=== PATIENT | female | born 2000 | race Caucasian/White ===

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

== ENCOUNTER 2018-01-03 01:34 | Day surgery (SDC) | payer OTHER | END 2018-01-03 22:42 | disposition home or self-care (01) | LOC: ATC 01:34 | DX: O21.9 Vomiting of pregnancy, unspecified (principal); Z79.899 Other long term (current) drug therapy; Z86.14 Personal history of Methicillin resistant Staphylococcus aureus infection; Z88.0 Allergy status to penicillin; Z88.2 Allergy status to sulfonamides; Z3A.11 11 weeks gestation of pregnancy; Z87.891 Personal history of nicotine dependence | CPT/HCPCS: J2405; J7120 ==

== ENCOUNTER 2018-01-04 00:05 | Day surgery (SDC) | payer OTHER | END 2018-01-04 09:16 | disposition home or self-care (01) | LOC: ATC 00:05 | DX: O21.9 Vomiting of pregnancy, unspecified (principal); Z88.2 Allergy status to sulfonamides; Z86.14 Personal history of Methicillin resistant Staphylococcus aureus infection; Z3A.11 11 weeks gestation of pregnancy; Z87.891 Personal history of nicotine dependence | CPT/HCPCS: 96361; 96374; J2405; J7120 ==

== ENCOUNTER 2018-01-06 00:02 | Day surgery (SDC) | payer OTHER | END 2018-01-06 10:04 | disposition home or self-care (01) | LOC: ATC 00:02 | DX: O21.9 Vomiting of pregnancy, unspecified (principal) | CPT/HCPCS: 96361; 96374; J2405; J7120 ==

== ENCOUNTER 2018-01-17 00:09 | Day surgery (SDC) | payer OTHER | END 2018-01-17 09:40 | disposition home or self-care (01) | LOC: ATC 00:09 | DX: O21.9 Vomiting of pregnancy, unspecified (principal) | CPT/HCPCS: 96361; 96374; J2405; J7120 ==

== ENCOUNTER 2018-01-18 00:02 | Day surgery (SDC) | payer OTHER | END 2018-01-18 10:30 | disposition home or self-care (01) | LOC: ATC 00:02 | DX: O21.9 Vomiting of pregnancy, unspecified (principal) | CPT/HCPCS: 99211; C1751 ==

== ENCOUNTER 2018-01-20 00:09 | Day surgery (SDC) | payer OTHER | END 2018-01-20 15:49 | disposition home or self-care (01) | LOC: ATC 00:09 | DX: O21.9 Vomiting of pregnancy, unspecified (principal) | CPT/HCPCS: 96361; 96374; J2405; J7120 ==

== ENCOUNTER 2018-01-24 00:10 | Day surgery (SDC) | payer OTHER | END 2018-01-24 09:33 | disposition home or self-care (01) | LOC: ATC 00:10 | DX: O21.9 Vomiting of pregnancy, unspecified (principal) | CPT/HCPCS: 96374; C1751; J2405; J7120 ==

== ENCOUNTER 2018-01-27 00:14 | Day surgery (SDC) | payer OTHER | END 2018-01-27 15:15 | disposition home or self-care (01) | LOC: ATC 00:14 | DX: O21.9 Vomiting of pregnancy, unspecified (principal) | CPT/HCPCS: 96361; 96374; J2405; J7120 ==

== ENCOUNTER 2018-01-31 00:42 | Day surgery (SDC) | payer OTHER | END 2018-01-31 09:31 | disposition home or self-care (01) | LOC: ATC 00:42 | DX: O21.9 Vomiting of pregnancy, unspecified (principal) | CPT/HCPCS: 96361; 96374; J2405; J7120 ==

== ENCOUNTER 2018-07-13 06:35 | Inpatient (IN) | payer OTHER ==
[~2018-07-13] VITALS: Ht 167.6 cm; Wt 68.0 kg
[~2018-07-13 06:35] MED LIST changes: +ACET500 PO; +Macrobid 100 M100 MG PO; -ONDA4ODT; +ONDA4ODT PO
--- NOTE | 2018-07-13 08:29 | NUR ---
UNABLE TO START IV WILL CALL
[2018-07-13 09:12] LABS: BASOPHILS ABSOLUTE AUTO 0.04 K/mm3 (0.00-0.23); BASOPHILS PERCENT AUTO 0 % (0-2); EOSINOPHILS ABSOLUTE AUTO 0.02 K/mm3 (0.00-0.68); EOSINOPHILS PERCENT AUTO 0 % (0-6); Hematocrit 37.1 % (33.0-51.0); Hemoglobin 12.2 g/dL (11.5-16.0); IMMATURE GRAN ABSOLUTE AUTO 0.05 K/mm3 (0.00-0.10); IMMATURE GRAN PERCENT AUTO 0 % (0-1); LYMPHOCYTES ABSOLUTE AUTO 1.64 K/mm3 (0.84-5.20); LYMPHOCYTES PERCENT AUTO 11 % (21-46); MONOCYTES ABSOLUTE AUTO 0.86 K/mm3 (0.16-1.47); MONOCYTES PERCENT AUTO 6 % (4-13); Mean Corpuscular HGB 28.3 pg (26.0-34.0); Mean Corpuscular HGB Conc 32.9 g/dL (31.5-36.5); Mean Corpuscular Volume 86 fL (80-100); Mean Platelet Volume 11.9 fL (9.1-12.4); NEUTROPHILS ABSOLUTE AUTO 11.73 K/mm3 (1.96-9.15); NEUTROPHILS PERCENT AUTO 82 % (41-73); Platelet Count 183 K/mm3 (150-400); RDW Coefficient Variation 12.4 % (11.7-14.2); RDW Standard Deviation 39.4 fL (35.1-46.3); Red Blood Cell Count 4.31 M/mm3 (3.80-5.20); White Blood Cell Count 14.34 K/mm3 (4.00-11.30)
--- NOTE | 2018-07-13 09:48 | NUR ---
PATIENT REFUSING IV AT THIS TIME, DR SCOTT UPDATED
[2018-07-14 06:30] LABS: Hematocrit 32.5 % (33.0-51.0); Hemoglobin 10.7 g/dL (11.5-16.0); Mean Corpuscular HGB 27.9 pg (26.0-34.0); Mean Corpuscular HGB Conc 32.9 g/dL (31.5-36.5); Mean Corpuscular Volume 85 fL (80-100); Mean Platelet Volume 12.2 fL (9.1-12.4); Platelet Count 169 K/mm3 (150-400); RDW Coefficient Variation 12.8 % (11.7-14.2); RDW Standard Deviation 38.5 fL (35.1-46.3); Red Blood Cell Count 3.83 M/mm3 (3.80-5.20); White Blood Cell Count 11.06 K/mm3 (4.00-11.30)
--- NOTE | 2018-07-14 16:32 | NUR ---
CONSULT. VERY SLEEPY CURRENTLY, FED ABOUT 90 MINUTES AGO. WAKENED BRIEFLY, ATTEMPTED TO COORDINATE SUCK, FREQUENT BITING, NO COORDINATION WITH INCREASED SUCTION THIS TRY. NO RESPONSE WHEN PUT TO BREAST. INSTRUCT/DEMO SELF EBM, POSITIONING TO OBTAIN A DEEPER ASYMETRIC LATCH AND FURTHER WIDENING, USE OF SHIELD, WIDENING LATCH ON SHIELD, AND WEANING FROM USE AFTER ENGORGEMENT EASES. INSTRUCT IN CHANGES TO EXPECT DURING THE FIRST WEEK WITH FEEDINGS AND WITH BABY AND REFERRED TO [facility]URE AND PAGE 18 OF [facility]. INSTRUCT IN PUMPING TO BRING MILK IN MORE FULLY AND TO USE FEEDING SYRINGE INTO SHIELD OR DIRECTLY INTO HIS MOUTH TO HELP STIMULATE DEEPER SUCKING. SLOW PUMPING TO 1-2X/DAY FOR 5-10 MINUTES WHEN MILK IS IN FULLY, AND STOP SUPPLEMENTS AT THAT TIME ALSO. MOM LOVING WITH HIM.
== END 2018-07-14 16:00 | disposition home or self-care (01) | DRG 807 ==
LOC: OBS 06:35 → BC 06:35 → OBS 06:51 → BC 06:52
PROVIDERS: ADMIT Obstetrics & Gynecology
PROC: 10E0XZZ Delivery of Products of Conception, External Approach (ICD-10-PCS; principal; 2018-07-13)
DX: O80 Encounter for full-term uncomplicated delivery (principal); Z37.0 Single live birth; Z3A.38 38 weeks gestation of pregnancy
CPT/HCPCS: 85025; 85027; J2210

== ENCOUNTER → 2018-08-30 | Outpatient (CLI) | payer OTHER ==
[2018-08-31 07:16] LABS: Candida species (DNA Probe) Negative (NEGATIVE); G. vaginalis (DNA Probe) Positive (NEGATIVE); T. vaginalis (DNA Probe) Negative (NEGATIVE)
== END | disposition home or self-care (01) ==
LOC: LAB SHORT 16:20 → LAB 16:20
PROVIDERS: Obstetrics & Gynecology
DX: N76.0 Acute vaginitis (principal)
CPT/HCPCS: 87480; 87510; 87660

== ENCOUNTER → 2019-10-17 | Outpatient (CLI) | payer OTHER ==
[2019-10-18 20:09] LABS: CHLAMYDIA TRACHOMATIS, NAA Negative (Negative); NEISSERIA GONORRHOEAE, NAA Negative (Negative)
== END | disposition home or self-care (01) ==
LOC: LAB 16:28 → LAB SHORT 16:28
PROVIDERS: Hospitalist
DX: Z11.3 Encounter for screening for infections with a predominantly sexual mode of transmission (principal)
CPT/HCPCS: 87491; 87591

== ENCOUNTER → 2020-11-29 | Outpatient (CLI) | payer OTHER | END | disposition home or self-care (01) | LOC: LAB 12:00 → LAB SHORT 12:00 | DX: R30.0 Dysuria (principal) | CPT/HCPCS: 87086 ==

== ENCOUNTER 2021-04-25 11:20 | Day surgery (SDC) | payer OTHER ==
[2021-04-25] MEDS ORDERED: Doxycycline Mo100 M1 PO (13:44)
[2021-04-25] MEDS ORDERED: DRIMINATE50 M1 PO (13:50)
[2021-04-25] MEDS ORDERED: PROM25 PO (13:53)
[2021-04-25] MEDS ORDERED: ONDA4 PO (13:53)
[2021-04-25] MEDS ORDERED: PRENATE CHEWABLE1 MG PO (13:54)
== END 2021-04-25 15:45 | disposition home or self-care (01) ==
LOC: ATC 11:20
DX: O21.1 Hyperemesis gravidarum with metabolic disturbance (principal); O21.9 Vomiting of pregnancy, unspecified; Z3A.15 15 weeks gestation of pregnancy
CPT/HCPCS: 96361; 96374; J2405; J7121

== ENCOUNTER 2021-04-28 14:52 | Day surgery (SDC) | payer OTHER ==
[~2021-04-28 14:52] MED LIST changes: +DRIMINATE50 M1 PO; +Doxycycline Mo100 M1 PO; +ONDA4 PO; +PRENATE CHEWABLE1 MG PO
== END 2021-04-28 15:50 | disposition home or self-care (01) ==
LOC: ATC 14:52
DX: O21.1 Hyperemesis gravidarum with metabolic disturbance (principal); R39.198 Other difficulties with micturition
CPT/HCPCS: 96361; 96374; J2405; J7121

== ENCOUNTER 2021-09-12 22:55 | Emergency (ER) | payer OTHER ==
[~2021-09-12] VITALS: Ht 172.7 cm; Wt 54.9 kg
[2021-09-12] MEDS ORDERED: Vibramycin100 MG PO (23:33)
== END 2021-09-12 23:40 | disposition home or self-care (01) ==
LOC: ER 22:55
DX: J02.9 Acute pharyngitis, unspecified (principal); Z87.891 Personal history of nicotine dependence; Z88.2 Allergy status to sulfonamides; Z88.1 Allergy status to other antibiotic agents
CPT/HCPCS: 87430; A9270

== ENCOUNTER → 2022-02-09 | Outpatient (CLI) | payer OTHER ==
[~2022-02-09] MED LIST changes: +Vibramycin100 MG PO
[2022-02-11 02:09] LABS: CHLAMYDIA TRACHOMATIS, NAA Negative (Negative)
== END | disposition home or self-care (01) ==
LOC: LAB SHORT 18:02 → LAB 18:02
PROVIDERS: Hospitalist
DX: Z11.3 Encounter for screening for infections with a predominantly sexual mode of transmission (principal)
CPT/HCPCS: 87491; 87591

== ENCOUNTER → 2022-04-06 | Outpatient (CLI) | payer OTHER ==
[2022-04-06 20:08] LABS: Influenza A, PCR POSITIVE (NEGATIVE); Influenza B, PCR NEGATIVE (NEGATIVE); Resp Syncytial Virus, PCR NEGATIVE (NEGATIVE); SARS-Cov-2 (COVID-19) PCR, MMC NEGATIVE (NEGATIVE)
== END | disposition home or self-care (01) ==
LOC: LAB SHORT 17:09
PROVIDERS: Hospitalist
DX: R50.9 Fever, unspecified (principal)
CPT/HCPCS: 0241U

== ENCOUNTER → 2022-05-21 | Outpatient (CLI) | payer OTHER | END | disposition home or self-care (01) | LOC: LAB SHORT 17:00 | DX: O20.0 Threatened abortion (principal) | CPT/HCPCS: 84702 ==

== ENCOUNTER 2023-02-19 23:41 | Observation (INO) | payer OTHER ==
[~2023-02-19] VITALS: Ht 172.7 cm; Wt 68.0 kg
[2023-02-19 23:47] VITALS: BP 125/76
[2023-02-20 09:00] VITALS: BP 116/58
[2023-02-20 13:13] VITALS: BP 116/70
[2023-02-20 15:41] VITALS: BP 123/75
--- NOTE | 2023-02-20 15:47 | NUR ---
TELEPHONE ORDER FROM Alexsandra KENT CNM FOR D/C HOME. PT IS DISCHARGED HOME, DRIVEN BY BOYFRIENChavo RUSSO.
== END 2023-02-20 15:55 | disposition home or self-care (01) ==
LOC: OBS 23:41 → BC 23:43 → OBS 02-20 02:44 → BC 02-20 02:45
PROVIDERS: ADMIT Advanced Practice Midwife
DX: O47.1 False labor at or after 37 completed weeks of gestation (principal); Z3A.37 37 weeks gestation of pregnancy; Z88.0 Allergy status to penicillin; Z88.2 Allergy status to sulfonamides; Z88.8 Allergy status to other drugs, medicaments and biological substances
CPT/HCPCS: 59025; 81003; 96372; A9270; G0378; J2270

== ENCOUNTER 2023-03-05 22:01 | Inpatient (IN) | payer OTHER ==
[~2023-03-05] VITALS: Ht 172.7 cm; Wt 68.0 kg
[2023-03-05 23:36] LABS: BASOPHILS ABSOLUTE AUTO 0.02 K/mm3 (0.00-0.23); BASOPHILS PERCENT AUTO 0 % (0-2); EOSINOPHILS ABSOLUTE AUTO 0.03 K/mm3 (0.00-0.68); EOSINOPHILS PERCENT AUTO 0 % (0-6); Hematocrit 33.4 % (33.0-51.0); Hemoglobin 10.6 g/dL (11.5-16.0); IMMATURE GRAN ABSOLUTE AUTO 0.04 K/mm3 (0.00-0.10); IMMATURE GRAN PERCENT AUTO 0 % (0-1); LYMPHOCYTES ABSOLUTE AUTO 1.87 K/mm3 (0.84-5.20); LYMPHOCYTES PERCENT AUTO 20 % (21-46); MONOCYTES ABSOLUTE AUTO 0.69 K/mm3 (0.16-1.47); MONOCYTES PERCENT AUTO 7 % (4-13); Mean Corpuscular HGB 25.2 pg (26.0-34.0); Mean Corpuscular HGB Conc 31.7 g/dL (31.5-36.5); Mean Corpuscular Volume 79 fL (80-100); Mean Platelet Volume 11.3 fL (9.1-12.4); NEUTROPHILS PERCENT AUTO 72 % (41-73); Platelet Count 209 K/mm3 (150-400); RDW Coefficient Variation 14.6 % (11.7-14.2); RDW Standard Deviation 42.6 fL (35.1-46.3); Red Blood Cell Count 4.21 M/mm3 (3.80-5.20); White Blood Cell Count 9.45 K/mm3 (4.00-11.30)
[2023-03-06] VITALS (12 sets, daily range): BP systolic 104–128; BP diastolic 55–84
--- NOTE | 2023-03-06 03:34 | NUR ---
PT DECLINED PITOCIN POST-DELIVERY.
[2023-03-06 10:22] LABS: Hematocrit 34.8 % (33.0-51.0); Hemoglobin 10.9 g/dL (11.5-16.0); Mean Corpuscular HGB 25.2 pg (26.0-34.0); Mean Corpuscular HGB Conc 31.3 g/dL (31.5-36.5); Mean Corpuscular Volume 81 fL (80-100); Mean Platelet Volume 11.3 fL (9.1-12.4); Platelet Count 209 K/mm3 (150-400); RDW Coefficient Variation 14.7 % (11.7-14.2); RDW Standard Deviation 42.5 fL (35.1-46.3); Red Blood Cell Count 4.32 M/mm3 (3.80-5.20); White Blood Cell Count 11.18 K/mm3 (4.00-11.30)
[2023-03-07 04:22] VITALS: BP 96/65
[2023-03-07 08:11] VITALS: BP 111/66
--- NOTE | 2023-03-07 09:30 | NUR ---
BANDS MATCHED, NB OUT OF ROOM IN CAR SEAT. PT AND WALKED OUT TO VEHICLE. D/C INSTRUCTIONS DISCUSSED. PT VERBALIZED UNDERSTANDING WITH NO FURTHER QUESTIONS.
== END 2023-03-07 09:20 | disposition home or self-care (01) | DRG 807 ==
LOC: BC 22:01 → OBS 22:01 → BC 22:42
PROVIDERS: ADMIT Family Medicine
PROC: 10E0XZZ Delivery of Products of Conception, External Approach (ICD-10-PCS; principal; 2023-03-06)
DX: O99.344 Other mental disorders complicating childbirth (principal); Z37.0 Single live birth; Z3A.39 39 weeks gestation of pregnancy; O99.334 Smoking (tobacco) complicating childbirth; F17.290 Nicotine dependence, other tobacco product, uncomplicated; F41.9 Anxiety disorder, unspecified; F32.A Depression, unspecified; Z90.49 Acquired absence of other specified parts of digestive tract; Z88.8 Allergy status to other drugs, medicaments and biological substances; Z88.0 Allergy status to penicillin; Z88.2 Allergy status to sulfonamides
CPT/HCPCS: 36415; 59025; 85025; 85027; 86850; 86900; 86901; A9270; J1885

== ENCOUNTER 2023-06-21 14:25 | Emergency (ER) | payer OTHER ==
[~2023-06-21] VITALS: Ht 172.7 cm; Wt 58.5 kg
[2023-06-21 14:51] VITALS: BP 116/62
== END 2023-06-21 15:29 | disposition home or self-care (01) ==
LOC: ER 14:25
DX: S90.32XA Contusion of left foot, initial encounter (principal); F17.290 Nicotine dependence, other tobacco product, uncomplicated; W10.9XXA Fall (on) (from) unspecified stairs and steps, initial encounter; Z88.0 Allergy status to penicillin; Z88.2 Allergy status to sulfonamides; Z88.8 Allergy status to other drugs, medicaments and biological substances
CPT/HCPCS: 73630; 99283-25

== ENCOUNTER → 2023-11-16 | Outpatient (CLI) | payer OTHER ==
[2023-11-17 20:20] LABS: Bacterial Vaginosis PCR Negative (NEGATIVE); Candida Group, PCR NOT DETECTED (NOT DETECT); Candida glabrata-krusei, PCR NOT DETECTED (NOT DETECT)
[2023-11-19 21:28] LABS: APTIMA MEDIA TYPE Unisex Swab; C. TRACHOMATIS BY TMA Negative (Negative); N. GONORRHOEAE BY TMA Negative (Negative); SPECIMEN SOURCE Vaginal
== END | disposition home or self-care (01) ==
LOC: LAB SHORT 18:50 → LAB 18:50
PROVIDERS: Family Medicine
DX: Z01.419 Encounter for gynecological examination (general) (routine) without abnormal findings (principal); Z11.3 Encounter for screening for infections with a predominantly sexual mode of transmission
CPT/HCPCS: 87481; 87491; 87591; 87661; 87801

== ENCOUNTER 2024-08-07 13:27 | Day surgery (SDC) | payer OTHER ==
[~2024-08-07] VITALS: Ht 175.3 cm; Wt 58.1 kg
[2024-08-07] VITALS (14 sets, daily range): BP systolic 100–1123; BP diastolic 61–89
[~2024-08-07 13:27] MED LIST changes: +DEPO-PROVE150 MG/1 M IM; +Lactated Ringer's 1,000 ML IV SCH
[2024-08-07] MEDS ORDERED: LORA10ER PO (13:43)
[2024-08-07] MEDS ORDERED: Dexamethasone Sod Phos 10 MG/ML 1ML VIAL ONE (13:53)
[2024-08-07] MEDS ORDERED: Ondansetron HCl 2 MG / ML 2ML Vial ONE (13:53)
[2024-08-07] MEDS ORDERED: Sugammadex Sodium 200 MG/2ML SDV (100 MG/ML) ONE (13:53)
[2024-08-07] MEDS ORDERED: Rocuronium Bromide 10 MG/ML 5ML Injection IV ONE (13:53)
[2024-08-07] MEDS ORDERED: Metoclopramide HCl 5MG / ML 2ML Vial ONE (13:53)
[2024-08-07] MEDS ORDERED: HYDROmorphone HCl/Pf 1MG SYR ONE (13:54)
[2024-08-07] MEDS ORDERED: Ketorolac Tromethamine 30mg Vial ONE (13:55)
[2024-08-07] MEDS ORDERED: Acetaminophen 500 MG Tab PO SCH (14:00)
[2024-08-07] MEDS ORDERED: Bupivacaine 0.5% HCl 5 MG/ML 30MLVIAL ONE (14:19)
[2024-08-07] MEDS ORDERED: propofoL 100 ML IV ONE (14:29)
[2024-08-07] MEDS ORDERED: Phenylephrine HCl 100 MCG/ML-NS 10MLSYR (1MG/10ML) ONE (14:52)
[2024-08-07] MEDS ORDERED: FentaNYL Citrate 50 MCG/ML 2 ML Injection ONE ×2 (15:07→16:04)
--- NOTE | 2024-08-07 15:11 | NUR ---
08/07/[address] PLACED A 14FR DIA CATHETER IN STERILE FASHION IN THE OR PRIOR TO SURGERY. DIA WILL BE D/C PRIOR TO LEAVING THE OR. UMER DAVIS RN 08-07-24 @[id number]
[2024-08-07] MEDS ORDERED: OxyCODONE 5 mg/Acetamin 325 mg TABLET PO PRN (16:45)
--- NOTE | 2024-08-07 16:58 | NUR ---
DISCHARGE NOTE PT A&OX4, BREATHING RA, VSS, NO COMPLAINTS, TOLERATING PO INTAKE. PT EAGER TO LEAVE. CHATTING C STAFF. ICE TO ABDOMEN. Patient up to Ambulate independently. Gait steady. Discharge instructions reviewed with patient. Patient verbalizes understanding. Copy given to patient to take home.PT REFUSED PO PAIN MEDICATION. Dressing to procedure site clean, dry, intact with no visible drainage, swelling, erythema or bruising noted. Discharged via wheelchair to private car for ride home.
== END 2024-08-07 16:50 | disposition home or self-care (01) ==
LOC: ORSCMMR 13:27 → ORD 15:00 → ORSCMMR 16:50
PROVIDERS: Obstetrics & Gynecology
PROC: 0UJD4ZZ Inspection of Uterus and Cervix, Percutaneous Endoscopic Approach (ICD-10-PCS; principal; 2024-08-07 15:00)
DX: R10.2 Pelvic and perineal pain (principal); N94.6 Dysmenorrhea, unspecified; Z87.891 Personal history of nicotine dependence
CPT/HCPCS: A9270; J1100; J1171; J1885; J2371; J2405; J2704; J2765; J3010; J7120

== ENCOUNTER → 2024-08-17 | Outpatient (CLI) | payer OTHER ==
[~2024-08-17] MED LIST changes: +LORA10ER PO; -Lactated Ringer's 1,000 ML IV SCH
[2024-08-20 18:38] LABS: APTIMA MEDIA TYPE Urine; C. TRACHOMATIS BY TMA Negative (Negative); N. GONORRHOEAE BY TMA Negative (Negative); SPECIMEN SOURCE Urine
== END ==
LOC: LAB 17:40 → LAB SHORT 17:40
PROVIDERS: Obstetrics & Gynecology
DX: Z11.3 Encounter for screening for infections with a predominantly sexual mode of transmission (principal)
CPT/HCPCS: 87491; 87591